=== PATIENT | male | born 1940 | race Caucasian/White ===

== ENCOUNTER 2022-03-20 11:11 | Emergency (ER) | payer BC, MEDICARE ==
[~2022-03-20] VITALS: Ht 175.3 cm; Wt 66.7 kg
[2022-03-20] MEDS ORDERED: SODIUM CHLORIDE 0.9% 1000ML 500 ML IV ONE (12:00)
[2022-03-20 12:29] LABS: BASOPHILS # (AUTO) 0.1 (0.0-0.1); BASOPHILS % 0.7 % (0.0-1.0); EOSINOPHILS # (AUTO) 0.1 (0.0-0.4); EOSINOPHILS % 1.9 % (0.0-6.0); HEMATOCRIT 36.4 % (38.2-49.6); HEMOGLOBIN 11.4 g/dL (14.0-18.0); LYMPHOCYTES # (AUTO) 2.1 (1.0-3.2); LYMPHOCYTES % 30.5 % (18.0-39.1); MEAN CORPUSCULAR HGB CONC 31.3 g/dL (31-35); MEAN CORPUSCULAR VOLUME 95.8 fL (81-99); MONOCYTES # (AUTO) 0.6 (0.2-0.8); MONOCYTES % 8.2 % (4.4-11.3); NEUTROPHILS % 58.4 % (38.7-80.0); PLATELET COUNT 281 x10e3/uL (140-360); RED CELL DISTRIBUTION WIDTH 14.4 % (11.7-14.4)
[2022-03-20 12:53] LABS: ALBUMIN 3.4 g/dL (3.5-5.0); ANION GAP 13.4 mmol/L (8-16); CALCIUM 8.8 mg/dL (8.4-10.2); CREATININE, SERUM 1.1 mg/dL (0.72-1.25); POTASSIUM 4.4 mmol/L (3.5-5.1)
[2022-03-20 13:00] LABS: CLARITY,URINE CLEAR (CLEAR); COLOR,URINE YELLOW (YELLOW); KETONES,URINE NEGATIVE (NEGATIVE); LEUKOCYTE ESTERASE ,URINE NEGATIVE (NEGATIVE); NITRITE,URINE NEGATIVE (NEGATIVE); PROTEIN,URINE DIPSTICK >=300 (NEGATIVE); URINE UROBILINOGEN 0.2 mg/dL (0.2 - 1)
[2022-03-20 13:01] LABS: BACTERIA,URINE FEW /HPF; EPITHELIAL CELLS,URINE FEW /LPF; RBC,URINE 0-5 /HPF (0-5); WBC,URINE (MAN) 0-5 /HPF (0-5)
== END 2022-03-20 14:44 | disposition home or self-care (01) ==
LOC: ER 11:21
DX: R00.1 Bradycardia, unspecified (principal); R53.1 Weakness; I10 Essential (primary) hypertension; E11.9 Type 2 diabetes mellitus without complications; Z90.5 Acquired absence of kidney; Z20.822 Contact with and (suspected) exposure to COVID-19
CPT/HCPCS: 36415; 71045; 80053; 81001; 83690; 84484; 85025; 93005; 99284; J7030; U0002

== ENCOUNTER 2022-07-30 12:26 | Observation (INO) | payer MEDICARE, BC ==
[~2022-07-30] VITALS: Ht 175.3 cm; Wt 66.7 kg
[2022-07-30 12:58] LABS: BASOPHILS # (AUTO) 0.1 (0.0-0.1); BASOPHILS % 1.2 % (0.0-1.0); EOSINOPHILS # (AUTO) 0.1 (0.0-0.4); EOSINOPHILS % 2.3 % (0.0-6.0); HEMATOCRIT 38.2 % (38.2-49.6); HEMOGLOBIN 12.5 g/dL (14.0-18.0); LYMPHOCYTES # (AUTO) 1.8 (1.0-3.2); LYMPHOCYTES % 32.3 % (18.0-39.1); MEAN CORPUSCULAR HEMOGLOBIN 31.2 pg (28-32); MEAN CORPUSCULAR HGB CONC 32.7 g/dL (31-35); MEAN CORPUSCULAR VOLUME 95.3 fL (81-99); MONOCYTES # (AUTO) 0.4 (0.2-0.8); MONOCYTES % 7.7 % (4.4-11.3); NEUTROPHILS # (AUTO) 3.2 (2.1-6.9); NEUTROPHILS % 56.1 % (38.7-80.0); PLATELET COUNT 225 x10e3/uL (140-360); RED BLOOD COUNT 4.01 x10e6/uL (4.3-5.7); RED CELL DISTRIBUTION WIDTH 13.3 % (11.7-14.4)
[2022-07-30] MEDS ORDERED: ONDANSETRON HCL INJ 2MG/ML 2ML 2 MG/ML VIAL IV STA (12:58)
[2022-07-30 13:21] LABS: ALBUMIN 3.6 g/dL (3.5-5.0); ALBUMIN/GLOBULIN RATIO 1.2 (0.8-2.0); ANION GAP 16.9 mmol/L (8-16); CALCIUM 8.7 mg/dL (8.4-10.2); CREATININE, SERUM 1.25 mg/dL (0.72-1.25); POTASSIUM 4.9 mmol/L (3.5-5.1)
[2022-07-30 13:30] LABS: CREATINE KINASE MB 2.3 ng/mL (0-5.0)
[2022-07-30] MEDS ORDERED: SODIUM CHLORIDE 0.9% 500ML 500 ML IV ONE (15:00)
[2022-07-30 16:13] LABS: CLARITY,URINE SL CLOUDY (CLEAR); COLOR,URINE STRAW (YELLOW); KETONES,URINE 1+ (NEGATIVE); LEUKOCYTE ESTERASE ,URINE NEGATIVE (NEGATIVE); NITRITE,URINE NEGATIVE (NEGATIVE); PROTEIN,URINE DIPSTICK >=300 (NEGATIVE); URINE UROBILINOGEN 0.2 mg/dL (0.2 - 1)
[2022-07-30 16:25] LABS: BACTERIA,URINE RARE /HPF; WBC,URINE (MAN) 0-5 /HPF (0-5)
[2022-07-30] MEDS ORDERED: SODIUM CHLORIDE FLUSH 10 ML SYR INJ PRN (17:15)
[2022-07-30] MEDS ORDERED: SODIUM CHLORIDE 0.9% 1000ML 1,000 ML IV SCH (18:00)
[2022-07-30 20:00] VITALS: BP 155/76
[2022-07-30] MEDS ORDERED: JARDIANCE25 MG PO (20:22)
[2022-07-30] MEDS ORDERED: ZYRTEC10 MG (20:22)
[2022-07-30] MEDS ORDERED: GLIMEPIRIDE2 MG PO (20:22)
[2022-07-30] MEDS ORDERED: GLIPIZIDE5 MG PO (20:22)
[2022-07-30] MEDS ORDERED: ARICEPT5 MG PO (20:22)
[2022-07-30] MEDS ORDERED: VASCEPA1 GM (20:22)
[2022-07-30] MEDS ORDERED: MELATONIN3 MG PO (20:22)
[2022-07-30] MEDS ORDERED: LOSARTAN POTAS100 MG PO (20:22)
[2022-07-30] MEDS ORDERED: METFORMIN HCL500 MG PO ×2 (20:22)
[2022-07-30] MEDS ORDERED: RANEXA1000 MG PO (20:22)
[2022-07-30] MEDS ORDERED: ASPIRIN325 MG PO (20:22)
[2022-07-30] MEDS ORDERED: AMLODIPINE BESYL5 MG PO (20:22)
[2022-07-30] MEDS ORDERED: DEPAKOTE ER250 MG PO (20:22)
[2022-07-30] MEDS ORDERED: LYRICA50 MG PO (20:22)
[2022-07-30] MEDS ORDERED: PRILOSEC OTC20 MG (20:22)
[2022-07-30] MEDS ORDERED: FUROSEMIDE40 MG PO (20:22)
[2022-07-30] MEDS ORDERED: ATORVASTATIN CA20 MG PO (20:22)
[2022-07-30 20:24] VITALS: BP 155/76
[2022-07-30] MEDS ORDERED: ASPIRIN 325 MG TAB PO SCH (21:00)
[2022-07-30] MEDS ORDERED: AMLODIPINE BESYLATE 5 MG TAB PO SCH (21:00)
[2022-07-30] MEDS ORDERED: DONEPEZIL HCL 5 MG TAB PO SCH (21:00)
[2022-07-30] MEDS ORDERED: DIVALPROEX SODIUM 250 MG TAB...DR PO SCH (21:00)
[2022-07-30] MEDS ORDERED: ATORVASTATIN 20 MG TAB PO SCH (21:00)
[2022-07-30] MEDS ORDERED: MELATONIN 3 MG TAB PO SCH (21:00)
[2022-07-30 21:48] LABS: CREATINE KINASE MB 2.2 ng/mL (0-5.0)
[2022-07-30] MEDS ORDERED: FUROSEMIDE 20 MG TAB PO PRN (22:00)
[2022-07-30] MEDS ORDERED: METFORMIN HCL 500 MG TAB PO SCH (22:00)
[2022-07-30] MEDS: PREGABALIN 50 MG CAP PO SCH (22:25)
[2022-07-31 05:09] LABS: BASOPHILS # (AUTO) 0.1 (0.0-0.1); BASOPHILS % 0.8 % (0.0-1.0); EOSINOPHILS # (AUTO) 0.2 (0.0-0.4); EOSINOPHILS % 2.9 % (0.0-6.0); HEMATOCRIT 32.9 % (38.2-49.6); HEMOGLOBIN 11.2 g/dL (14.0-18.0); LYMPHOCYTES # (AUTO) 2.3 (1.0-3.2); MEAN CORPUSCULAR HEMOGLOBIN 31.4 pg (28-32); MONOCYTES # (AUTO) 0.6 (0.2-0.8); MONOCYTES % 9.3 % (4.4-11.3); NEUTROPHILS % 48.8 % (38.7-80.0); PLATELET COUNT 235 x10e3/uL (140-360); RED BLOOD COUNT 3.57 x10e6/uL (4.3-5.7); RED CELL DISTRIBUTION WIDTH 13.2 % (11.7-14.4)
[2022-07-31 05:11] LABS: MEAN CORPUSCULAR VOLUME 92.2 fL (81-99)
[2022-07-31 06:14] LABS: ALBUMIN 3.1 g/dL (3.5-5.0); ALBUMIN/GLOBULIN RATIO 1.3 (0.8-2.0); ANION GAP 12.7 mmol/L (8-16); CALCIUM 8.2 mg/dL (8.4-10.2); CREATININE, SERUM 1.05 mg/dL (0.72-1.25); POTASSIUM 3.7 mmol/L (3.5-5.1)
[2022-07-31] MEDS ORDERED: METFORMIN HCL 500 MG TAB PO SCH ×3 (07:30→12:00)
[2022-07-31] MEDS ORDERED: DEXTROSE 50% SYRINGE 50 ML IV PRN (07:30)
[2022-07-31 08:09] VITALS: BP 173/73
[2022-07-31] MEDS ORDERED: NON-FORMULARY MEDICATION (Empagliflozin (Jardiance) 25 MG) PO SCH (09:00)
[2022-07-31] MEDS ORDERED: GLIMEPIRIDE 2 MG TAB PO SCH (09:00)
[2022-07-31] MEDS: PREGABALIN 50 MG CAP PO SCH (09:00)
[2022-07-31] MEDS ORDERED: LOSARTAN POTASSIUM 100 MG TAB PO SCH (09:00)
[2022-07-31] MEDS ORDERED: RANOLAZINE 500 MG TABSR PO SCH (09:00)
[2022-07-31 12:24] VITALS: BP 156/61
[2022-07-31 14:21] VITALS: BP 156/61
== END 2022-07-31 16:30 | disposition home or self-care (01) ==
LOC: ER 12:38 → ERHOLD 17:08 → INTOOBSV 17:08 → MED/SURG 17:58
PROVIDERS: ADMIT Internal Medicine; ATTEND Internal Medicine
DX: E86.0 Dehydration (principal); E11.69 Type 2 diabetes mellitus with other specified complication; E78.5 Hyperlipidemia, unspecified; R00.1 Bradycardia, unspecified; Z20.822 Contact with and (suspected) exposure to COVID-19
CPT/HCPCS: 36415 ×2; 70450; 71045 ×2; 74018; 80053 ×2; 81001; 82550 ×2; 82553 ×2; 82948 ×2; 83735; 84484 ×2; 85025 ×2; 93005 ×2; 94799 ×2; 97116; 97161; 99284; G0378 ×2; J2405; J7030; J7040; U0002